=== PATIENT | female | born 2005 | race Hispanic/Latino ===

== ENCOUNTER 2025-01-31 17:42 | Emergency (ER) | payer SELFPAY ==
[~2025-01-31] VITALS: Ht 162.6 cm; Wt 81.6 kg
--- NOTE | 2025-01-31 17:53 | ERN ---
ED Note History of Present Illness Stated Complaint: LT 2ND FINGER PAIN Chief Complaint: Finger Injury Time Seen by MD: 17:44 Time Seen by Midlevel: 17:44 Dictation: The patient is a 19-year-old with no past medical history who presents to the emergency department with complains of left index finger injury. Patient reports she accidentally closed the car door on the tip of her finger. Denies any other injurers. Allergies: Coded Allergies: No Known Drug Allergies (Unverified Allergy, Unknown, 01/31/25) Past Medical History Past Medical History: No Pertinent History Surgical History: None RN Note Reviewed/Agreed w/PFSH: Yes Review of System Dictation Constitutional: Negative for fever,chills, and weight loss Eyes: Negative for injury, pain,redness, and discharge ENT: Negative for injury,pain or swelling Cardiovascular: Negative for chest pain, palpitations, and edema Respiratory: Negative for shortness of breath, cough, and wheezing, Abdomen/GI: Negative for abdominal pain, nausea, vomiting, diarrhea, and constipation Back: Negative for injury and pain : Negative for injury, bleeding and discharge MS/Extremity: Positive for left index finger injury Skin: Negative for rash, and discoloration Neuro: Negative for headache, weakness, numbness, tingling, and seizure Psych: Negative for suicide ideation, homicidal ideation, and hallucinations Initial Vital Sign VS Vital Signs Date Time Temp Pulse Resp B/P (MAP) Pulse Ox O2 Delivery O2 Flow Rate FiO2 01/31/25 17:45 98.6 87 18 141/80 97 01/31/25 18:25 Room Air* 0 21 Physical Exam Dictation Vital Signs reviewed General Appearance: Alert, oriented x 3, no acute distress, well developed, nourished. Head and Face: non-traumatic. Eyes: PERRL, pink conjunctivas, eyelid no trauma, anterior chamber with arcus senilis. Ears: Pinnas intact and no signs of trauma or erythema ear canals clear and no discharge TM no erythema Nose: No discharge, no bleeding. Oropharynx: Mouth normal, tongue pink. pharynx clear,no erythema, tonsils no exudates, no abscesses noted, mucous membrane moist Neck: Supple, non-tender, no thyromegaly, no masses, no JVD, no bruits Breast:Deferred Chest:No tenderness, no crepitus, no paradoxical movement, no retractions Lungs:Clear, well-ventilated, symmetric, no rales, no wheezing, no rhonchi, no stridor, good breath sounds bilaterally Heart: Regular rate, regular rhythm, no murmur, no gallops Vascular: no peripheral edema, Abdomen: Soft, positive bowel sounds, nondistended, no guarding, nontender, no rebound, no masses no hepatomegaly, no splenomegaly, no Scanlon's sign, no hernias. Rectal: Deferred Genital: Deferred Neurological: Normal speech, motor function intact, sensory function intact Musculoskeletal: Neck nontender, full range of motion, back nontender, full range of motion, Extremities: nontender, full range of motion , left distal index finger with bruising, no open wounds, nail is intact Skin: Color pink, dry, no turgor, no rash, no lacerations, no abrasions, no contusions. Lymphatic: Deferred Results (Laboratory/Radiology) Laboratory/Radiology REASON: injury ORDERING PHYSICIAN: BRODY TALBOT HOG SAWYER PROCEDURE: FINGER LT - FINGER(S) 2+VWS LT EXAM: CR left finger, 3 View. CLINICAL HISTORY: injury COMPARISON: None provided. FINDINGS: BONES: No acute fracture or aggressive appearing osseous lesion. JOINTS: No dislocation. The joint spaces are normal. SOFT TISSUES: Index finger soft tissue edema. IMPRESSION: No acute osseous abnormality. No acute fracture or dislocation. /[place] Labs Reviewed?: Yes ED Course ED Course Orders Procedure Category Date Status Time Finger(S) 2+Vws Lt RAD 01/31/25 Resulted 17:46 Acetaminophen 500mg PHA 01/31/25 Complete Tab (Tylenol 500mg T 18:00 ,Urine Test LAB 01/31/25 Logged 17:51 Finger Splint NUPUR 01/31/25 In Process 18:52 Current Medications Medications (Trade) Dose Ordered Sig/Corin Route PRN Reason Start Time Stop Time Status Last Admin Dose Admin Acetaminophen (TYLenol 500MG TAB) 1,000 mg ONCE ONCE PO 01/31/25 18:00 01/31/25 18:01 DC 01/31/25 19:18 Vital Signs Date Time Temp Pulse Resp B/P (MAP) Pulse Ox O2 Delivery O2 Flow Rate FiO2 01/31/25 18:25 97.5 75 18 118/74 99 Room Air* 0 21 01/31/25 17:45 98.6 87 18 141/80 97 Medical Decision Making MDM The patient is a 19-year-old with no past medical history who presents to the emergency department with complains of left index finger injury. Patient reports she accidentally closed the car door on the tip of her finger. Denies any other injurers. No obvious fracture seen on x-ray. Patient is neurovascularly intact, nail is intact. Patient will be splinted in discharged to follow up with PCP. Differential diagnosis: Finger fracture, finger contusion, abrasion Need for hospitalization: Patient does not meet criteria for hospitalization. There are no social concerns with this patient. DX & DISP Disposition: Discharge Departure Impression: Primary Impression: Contusion of left index finger Condition: Stable Additional Instructions: Your Xray did not show any obvious fractures. Please follow up with PCP in 1-2 days. Return if symptoms worsen. Referrals: SELF,REFERRAL (PCP) Time of Disposition: 18:54 I have reviewed the case, and I agree with, Diagnosis and Plan BRODY TALBOTP Jan 31, 2025 17:53
--- NOTE | 2025-01-31 18:25 | NUR ---
ASSUMED CARE AT THIS TIME.
--- NOTE | 2025-01-31 19:09 | HMCIMG ---
EXAM: CR left finger, 3 View. CLINICAL HISTORY: injury COMPARISON: None provided. FINDINGS: BONES: No acute fracture or aggressive appearing osseous lesion. JOINTS: No dislocation. The joint spaces are normal. SOFT TISSUES: Index finger soft tissue edema. IMPRESSION: No acute osseous abnormality. No acute fracture or dislocation. /[place]
[2025-01-31 19:27] VITALS: BP 118/74; PULSE 75; RESP 18; TEMP 97.5; O2SAT 97
== END 2025-01-31 19:33 | disposition home or self-care (01) ==
LOC: EDH 17:42
DX: S60.022A Contusion of left index finger without damage to nail, initial encounter (principal); W23.0XXA Caught, crushed, jammed, or pinched between moving objects, initial encounter; Y93.89 Activity, other specified; Y92.89 Other specified places as the place of occurrence of the external cause; Y99.8 Other external cause status
CPT/HCPCS: 29130; 73140; 99283